=== PATIENT | male | born 1950 | race Caucasian/White ===

== ENCOUNTER 2019-10-05 15:39 | Emergency (ER) | payer MEDICARE, OTHER ==
[~2019-10-05] VITALS: Ht 180.3 cm; Wt 92.7 kg
[~2019-10-05 15:39] MED LIST: ALBUTEROL HFA 90 MCG INH; ALPR-624 PO; AMIO200T61 PO; AMLO-314 PO; AMLO5TAB PO; ATROVENT INH; LEVO25TA7 PO; LISI-642 PO; METO-539 PO; PANT-47 PO; TRAZ-219 PO
--- NOTE | 2019-10-05 16:18 | NUR ---
PER DR FRANKLIN, OKAY TO ACCES PORT A CATH TO RIGHT UPPER CHEST.
[2019-10-05 16:41] LABS: HEMATOCRIT 26.2 % (42.0-52.0); HEMOGLOBIN 8.6 g/dl (14.0-17.9); MEAN CORPUSCULAR HGB CONC 32.8 g/dL (33.0-36.5); MEAN CORPUSCULAR VOLUME 79.4 FL (78-98); MEAN PLATELET VOLUME 8.7 FL (7.4-10.4); PLATELET COUNT 127 X10'3 (140-440); WHITE BLOOD COUNT 2.9 X10'3 (4.5-11.0)
[2019-10-05 17:02] LABS: ALANINE AMINOTRANSFERASE 38 U/L (12-78); ALBUMIN 2.8 G/DL (3.4-5.0); ALBUMIN/GLOBULIN RATIO 0.9 (1.1-1.5); ALKALINE PHOSPHATASE 310 IU/L (46-116); ANION GAP 10 (8-16); ASPARTATE AMINO TRANSFERASE 61 U/L (10-37); BLOOD UREA NITROGEN 61 MG/DL (7-18); BUN/CREATININE RATIO 36.7 (5.4-32.0); CALCIUM 8.7 MG/DL (8.5-10.1); CHLORIDE 97 MMOL/L (99-107); CREATININE 1.66 MG/DL (0.60-1.10); GLUCOSE 131 MG/DL (70-104); POTASSIUM 4.4 MMOL/L (3.5-5.1); SODIUM 132 MMOL/L (135-145); TOTAL PROTEIN 5.8 G/DL (6.4-8.2); eGFR 41 ML/MIN
[2019-10-05 18:07] LABS: NUCLEATED RED BLOOD CELLS 1 /100WBC (0-0); PLATELET ESTIMATE DECREASED; TOTAL CELLS COUNTED 100
[2019-10-05 18:08] LABS: ANISOCYTOSIS 3+; HYPOCHROMASIA 3+; POLYCHROMASIA 1+
[2019-10-05 18:09] LABS: ELLIPTOCYTES FEW; MICROCYTOSIS 1+; TEAR DROP CELLS FEW
[2019-10-05 18:20] LABS: LARGE PLATELETS FEW; POIKILOCYTOSIS 1+; SCHISTOCYTES FEW
[2019-10-05] MEDS ORDERED: ringers solution, lacted 1,000 ML IV SCH (19:05)
[2019-10-05] MEDS ORDERED: CefTRIAXone 2gm/D5W 50ml 50 ML IV ONE (19:10)
[2019-10-05 19:26] VITALS: BP 128/68
[2019-10-05 19:49] LABS: CLARITY,URINE CLOUDY (Clear); COLOR,URINE YELLOW (Yellow); GLUCOSE, URINE NEGATIVE (Neg); KETONES,URINE NEGATIVE (Neg); LEUKOCYTE ESTERASE ,URINE NEGATIVE (Neg); NITRITES, URINE NEGATIVE (Neg); OCCULT BLOOD,URINE NEGATIVE (Neg); PH,URINE 5.5 (4.8-8.0); PROTEIN,URINE NEGATIVE (Neg)
[2019-10-05 19:52] LABS: UA COLLECTION TYPE URINAL
[2019-10-05 19:59] LABS: HYALINE CASTS >30 /LPF (NEGATIVE); SQUAMOUS EPITHELIAL CELL,UR FEW /LPF (FEW)
[2019-10-05 20:00] LABS: CAL OXALATE CRYSTALS 2+ /HPF (NEGATIVE); RBC,URINE NONE SEEN /HPF (0-2); WBC,URINE 0-4 /HPF (0-4)
[2019-10-05 20:01] LABS: BACTERIA,URINE NONE SEEN /HPF (Neg)
[2019-10-05] MEDS ORDERED: PROC10TA10 PO (20:26)
[2019-10-05] MEDS ORDERED: PROM6.256 PO (20:26)
[2019-10-05] MEDS ORDERED: TRAZ-219 PO (20:26)
[2019-10-05] MEDS ORDERED: BUDE10.2 INH (20:26)
[2019-10-05] MEDS ORDERED: HYDR-3972 PO (20:26)
[2019-10-05] MEDS ORDERED: ARIP5TAB14 PO (20:26)
[2019-10-05] MEDS ORDERED: POTA10TA36 PO (20:26)
[2019-10-05] MEDS ORDERED: ASPI-1265 PO (20:26)
[2019-10-05] MEDS ORDERED: PRAM0.253 PO (20:26)
[2019-10-05] MEDS ORDERED: METO-292 PO (20:26)
[2019-10-05] MEDS ORDERED: ALPR1TAB2 PO (20:26)
[2019-10-05] MEDS ORDERED: GABA-530 PO (20:26)
[2019-10-05] MEDS ORDERED: SERT100T PO (20:26)
[2019-10-05] MEDS ORDERED: AMIO200T61 PO (20:26)
[2019-10-05] MEDS ORDERED: OMEP20TA5 PO (20:26)
[2019-10-05] MEDS ORDERED: LEVO75TA PO (20:26)
[2019-10-05] MEDS ORDERED: FURO20TA4 PO (20:26)
[2019-10-05] MEDS ORDERED: heparin sodium, porcine/PF 100unit/ml 5ML syringe IV ONE (22:32)
== END 2019-10-05 22:51 | disposition home or self-care (01) ==
LOC: ER 15:40
DX: T45.1X1A Poisoning by antineoplastic and immunosuppressive drugs, accidental (unintentional), initial encounter (principal); R41.0 Disorientation, unspecified; J44.9 Chronic obstructive pulmonary disease, unspecified; Z90.49 Acquired absence of other specified parts of digestive tract; Z98.890 Other specified postprocedural states; Z79.899 Other long term (current) drug therapy; Z88.6 Allergy status to analgesic agent; Z79.82 Long term (current) use of aspirin; Z85.05 Personal history of malignant neoplasm of liver; Y92.89 Other specified places as the place of occurrence of the external cause
CPT/HCPCS: 36415; 71045; 80053; 81001; 82140; 83605; 84484; 85025; 87040; 93005; 96365; 96366; 96375; 99284; J0696; J1642; J7120